=== PATIENT | male | born 1950 | race Hispanic/Latino ===

== ENCOUNTER 2019-11-26 13:50 | Emergency (ER) | payer MEDICARE ==
--- NOTE | 2019-11-26 15:25 | RAD ---
EXAM: Right rib series with chest x-ray HISTORY: Rib pain COMPARISON: None FINDINGS: Single view of the chest shows a normal sized cardiomediastinal silhouette. There is no hazel dence of consolidation, mass, or pleural effusion. Multiple views of the right ribs shows a right posterior seventh rib fracture. No underlying pleural thickening or pneumothorax are seen. IMPRESSION: 1. Right seventh rib fracture 2. No evidence of acute cardiopulmonary disease.
--- NOTE | 2019-11-26 15:35 | CT ---
EXAM: CT brain without contrast HISTORY: Fell off tractor with right rib pain and head injury COMPARISON: None TECHNIQUE: Multiple contiguous axial images were obtained and a CT of the brain without contrast. FINDINGS: The brain is normal in morphology and attenuation without focal lesions or confluent areas of infarction. There is no evidence of hydrocephalus, intracranial hemorrhage, or extra-axial fluid collection. The calvarium and overlying soft tissues are unremarkable. Mucosal thickening is seen in the nasophar ynx with areas of hyperdensity amongst the mucosal thickening. Opacification of the majority of the ethmoid air cells and left sphenoid sinus. There are polypoid hyperdense lesions extending into both maxillary sinuses. Near complete opacification of the frontal sinuses is seen. IMPRESSION: 1. No evidence of acute intracranial abnormality 2. Diffuse sinus disease. This could be fungal in etiology but a sinus or nasal mucosal neoplasm promise ot be entirely excluded. ENT consultation is recommended.
--- NOTE | 2019-11-26 15:35 | CT ---
CT CERVICAL SPINE WITH CORONAL AND SAGITTAL REFORMATIONS: 11/26/19 HISTORY: Fall. Neck pain. FINDINGS/IMPRESSION: Multilevel degenerative changes are present. No acute fracture, subluxation or facet malalignment is identified. POS: [facility]
== END 2019-11-26 16:38 | disposition home or self-care (01) ==
LOC: ERS 13:50
DX: S22.31XA Fracture of one rib, right side, initial encounter for closed fracture (principal); F41.9 Anxiety disorder, unspecified; F32.9 Major depressive disorder, single episode, unspecified; F17.210 Nicotine dependence, cigarettes, uncomplicated; V87.8XXA Person injured in other specified noncollision transport accidents involving motor vehicle (traffic), initial encounter
CPT/HCPCS: 70450; 72125

== ENCOUNTER 2020-09-27 07:10 | Outpatient (CLI) | payer MEDICARE ==
[2020-09-27 12:06] LABS: #Basophils 0.1 10x3/uL (0.0-0.2); #Eosinphils 0.4 10x3/uL (0.0-0.5); #Monocytes 0.4 10x3/uL (0.0-1.1); #Neutrophils 4.8 10x3/uL (1.5-8.4); %Basophils 0.9 % (0.0-2.0); %Eosinophils 5.5 % (0.0-6.0); %Lymphocytes 19.7 % (18.0-47.0); %Monocytes 5.2 % (0.0-10.0); %Neutrophils 68.4 % (40.0-75.0); Hemoglobin 14.2 g/dL (14.0-18.0); Mean Corpuscular HGB CONC 35.2 G/DL (32.0-36.0); Mean Corpuscular Hemoglobin 33.6 PG (27.0-33.0); Mean Corpuscular Volume 95.5 fl (80.0-100.0); Mean Platelet Volume 9.8 fl (7.4-10.4); Platelet Count 213 10x3/uL (130-400); RBC Distribution Width 12.9 % (11.5-14.5); Red Blood Cell (RBC) Count 4.22 10x6/uL (4.40-5.80)
[2020-09-27 12:26] LABS: Anion Gap 12 mmol/L (10-20); BUN (Urea Nitrogen) 19 mg/dL (8.4-25.7); Calc. Creatinine Clearance 0 mL/min (70-130); Calcium 8.7 mg/dL (7.8-10.44); Carbon Dioxide 22 mmol/L (23-31); Chloride 107 mmol/L (98-107); Glucose 144 mg/dL (83-110); Potassium 4.2 mmol/L (3.5-5.1); Sodium 137 mmol/L (136-145)
[2020-09-27 18:29] LABS: SARS-CoV-2 PCR by NAA Not Detected (NotDetected)
== END 2020-09-27 07:11 | disposition home or self-care (01) ==
LOC: LABBT 07:10
PROVIDERS: ATTEND Surgery
DX: Z01.812 Encounter for preprocedural laboratory examination (principal); Z20.822 Contact with and (suspected) exposure to COVID-19; K40.20 Bilateral inguinal hernia, without obstruction or gangrene, not specified as recurrent
CPT/HCPCS: 80048; 85025; U0003; U0005; 87635

== ENCOUNTER 2020-09-30 06:16 | Day surgery (SDC) | payer MEDICARE ==
[2020-09-29 11:28] VITALS: BMI 17.1
[2020-09-30] MEDS ORDERED: Bupivacaine 0.25% HCL 30 ML VIAL ONE (06:28)
[2020-09-30] MEDS ORDERED: Lidocaine 2% w/Epinephrine 1:200K 20 ML VIAL ONE (06:28)
[2020-09-30] MEDS ORDERED: SUGAMMADEX SODIUM 200 MG/2 ML VIAL ONE (06:53)
[2020-09-30] MEDS ORDERED: Fentanyl 250 MCG/5 ML VIAL ONE (06:53)
[2020-09-30] MEDS ORDERED: Albuterol Sulfate HFA (OR ONLY) ONE ×2 (07:45→08:50)
[2020-09-30] MEDS ORDERED: Glycopyrrolate 0.2 MG/ML 5 ML SYRINGE ONE (08:50)
[2020-09-30] MEDS ORDERED: Ondansetron PF 4 MG/2 ML Vial ONE (08:50)
[2020-09-30] MEDS ORDERED: Labetalol HCl 100 MG/20 ML VIAL ONE (08:50)
[2020-09-30] MEDS ORDERED: Lidocaine 1% PF 5 ML VIAL ONE (08:50)
[2020-09-30] MEDS ORDERED: Dexamethasone 20 MG/5 ML VIAL ONE (08:50)
[2020-09-30] MEDS ORDERED: PROPOFOL 200 MG/20 ML VIAL ONE (08:50)
[2020-09-30] MEDS ORDERED: Rocuronium Bromide 10 MG/ML (10ML VIAL) ONE (08:50)
[2020-09-30] MEDS ORDERED: PHENYLEPHRINE-NS 100 MCG/ML 10 ML SYRINGE ONE (08:50)
[2020-09-30] MEDS ORDERED: Fentanyl 100 MCG/2 ML VIAL ONE (10:04)
[2020-09-30] MEDS ORDERED: hydrALAZINE 20 MG/ML VIAL ONE (10:17)
[2020-09-30] MEDS ORDERED: HYDROcodone/Acetaminophen 5/325 mg Tablet ONE (11:34)
--- NOTE | 2020-10-01 12:29 | EKG ---
Test Reason : PREOP Blood Pressure : / mmHG Vent. Rate : 073 BPM Atrial Rate : 073 BPM P-R Int : 162 ms QRS Dur : 086 ms QT Int : 422 ms P-R-T Axes : 074 075 078 degrees QTc Int : 464 ms Sinus rhythm with occasional Premature ectopic complexes Otherwise normal ECG No previous ECGs available Confirmed by SHANI HARRELL ([id number]) on 10/01/2020 12:29:04 PM Referred By: JOHNNIE Confirmed By:SHANI HARRELL
--- NOTE | 2020-10-01 12:49 | OP ---
DATE OF PROCEDURE: 09/30/2020 PREOPERATIVE DIAGNOSIS: Bilateral inguinal hernia. POSTOPERATIVE DIAGNOSIS: Bilateral inguinal hernia. PROCEDURE PERFORMED: Da Sunil laparoscopic bilateral inguinal hernia repair with mesh 3DMax medium. ANESTHESIA: General. ESTIMATED BLOOD LOSS: Minimal. COMPLICATIONS: None. SPECIMEN: None. FINDINGS: Bilateral inguinal hernia. DESCRIPTION OF PROCEDURE: The patient was taken to the operating room and laid supine on the operating room table. After general anesthetic was obtained, a Dennis was placed. The abdomen was prepped and draped in a sterile fashion. A curved incision was made above the umbilicus. Cautery was dissected down to the fascia and the fascia was scored. Abdominal cavity was entered bluntly using a Francheska clamp. An 11-mm balloon trocar was placed and high-flow pneumoperitoneum was obtained. Left and right abdominal 8-mm robot trocars were placed. All ports were docked to the robot. The patient had right-sided direct, left-sided indirect inguinal hernias. The bilateral peritoneum was taken down and bilateral preperitoneal space was entered. The bilateral preperitoneal space was bluntly dissected the pubic tubercle medially, anterior superior iliac crest laterally. Shelving edge of inguinal ligament was fully exposed. Bilateral hernia sacs were dissected high up on to the peritoneum. 3DMax medium mesh was brought in and placed in the abdomen. The right and left meshes were placed over their corresponding sides. The M-labeled medial aspect of the mesh was placed over the pubic tubercle medially on each side. The mesh was laid out to cover the direct, indirect, and femoral areas. The mesh was sewn via 2-0 Vicryl to the pubic tubercle medially, into the posterior fascia laterally. The bilateral peritoneum was then reapproximated using running 3-0 Stratafix. All needles were removed from the abdomen and accounted for. All port sites were infiltrated using local anesthetic. All ports were removed under camera visualization. Pneumoperitoneum was let down. PDS was used to close the fascial defect above the umbilicus. All incisions were irrigated and closed using 4-0 Monocryl and Dermabond. The patient was sent to Recovery in stable condition. All instrument counts, needle counts, and lap counts were correct. Job ID: [id number]
== END 2020-09-30 15:14 | disposition home or self-care (01) ==
LOC: SDC 06:16
PROVIDERS: ATTEND Surgery
PROC: 0YUA4JZ Supplement Bilateral Inguinal Region with Synthetic Substitute, Percutaneous Endoscopic Approach (ICD-10-PCS; principal; 2020-09-30)
DX: K40.20 Bilateral inguinal hernia, without obstruction or gangrene, not specified as recurrent (principal); Z79.899 Other long term (current) drug therapy; Z88.0 Allergy status to penicillin; Z88.6 Allergy status to analgesic agent
CPT/HCPCS: 49650; 93005; C1781; 93010; J0360; J0690; J1100; J2405; J2704; J3010; S0020